=== PATIENT | male | born 1950 | race Caucasian/White ===

== ENCOUNTER 2021-07-01 07:09 | Emergency (ER) | payer BC ==
[2021-07-01 07:46] LABS: Bilirubin Neg (Negative); Blood, Urine Negative (Negative); Glucose, Urine (Dipstick) Normal (Negative); Ketone, Urine 15 mg/dL (Negative); Leukocyte 100 (Negative); Nitrite Negative (Negative); Protein, Urine (Dipstick) Negative (Neg-Trace); Specific Gravity, Urine 1.015 (1.002-1.036); Urobilinogen Normal mg/dL (Less than 2)
[2021-07-01 07:47] LABS: Clarity Very Cloudy (Clear)
[2021-07-01 07:56] LABS: RBC/HPF 0-3 HPF (0-3)
[2021-07-01 07:57] LABS: Bacteria/HPF 4+ HPF (None Seen); Squamous Epithelial 0-3 HPF (0-3)
[2021-07-01] MEDS ORDERED: Ciprofloxacin 500 MG TAB PO SCH (09:00)
== END 2021-07-01 08:55 | disposition home or self-care (01) ==
LOC: CSHERS 07:09
DX: N30.00 Acute cystitis without hematuria (principal); R33.9 Retention of urine, unspecified; R10.817 Generalized abdominal tenderness; E78.5 Hyperlipidemia, unspecified; I10 Essential (primary) hypertension; Z79.899 Other long term (current) drug therapy
CPT/HCPCS: 51702; 81003; 81015; 87086

== ENCOUNTER 2023-02-28 13:44 | Emergency (ER) | payer BC ==
[2023-02-28 14:28] LABS: #Basophils 0.1 10x3/uL (0.0-0.2); #Eosinphils 0.2 10x3/uL (0.0-0.5); #Monocytes 0.6 10x3/uL (0.0-1.1); #Neutrophils 5.4 10x3/uL (1.5-8.4); %Basophils 0.7 % (0.0-2.0); %Eosinophils 2.6 % (0.0-6.0); %Lymphocytes 16.4 % (18.0-47.0); %Monocytes 8.4 % (0.0-10.0); %Neutrophils 71.5 % (40.0-75.0); Hemoglobin 15.1 g/dL (13.5-17.5); Mean Corpuscular Hemoglobin 29.9 pg (27.0-33.0); Mean Corpuscular Volume 87.9 fl (81.2-95.1); Platelet Count 207 10x3/uL (150-450); RBC Distribution Width 11.8 % (11.5-14.5); Red Blood Cell (RBC) Count 5.05 10x6/uL (4.32-5.72); White Blood Cell (WBC) Count 7.6 10x3/uL (3.5-10.5)
[2023-02-28 14:40] LABS: ALT (SGPT) 19 U/L (8-55); AST (SGOT) 17 U/L (5-34); Albumin 4.5 g/dL (3.4-4.8); Alkaline Phosphatase 71 U/L (40-110); Anion Gap 16 mmol/L (10-20); BUN (Urea Nitrogen) 18 mg/dL (8.4-25.7); Bilirubin, Total 0.5 mg/dL (0.2-1.2); Calc. Creatinine Clearance 0 mL/min (70-130); Calcium 9.3 mg/dL (7.8-10.44); Carbon Dioxide 21 mmol/L (23-31); Chloride 109 mmol/L (98-107); Estimated GFR 72; Globulin 2.3 g/dL (2.4-3.5); Glucose 115 mg/dL (83-110); Protein, Total 6.8 g/dL (5.8-8.1); Sodium 142 mmol/L (136-145)
[2023-02-28] MEDS ORDERED: Iopamidol 370 76% 100 ML VIAL ONE (15:22)
== END 2023-02-28 16:35 | disposition home or self-care (01) ==
LOC: CSHERS 13:44
DX: R42 Dizziness and giddiness (principal); I10 Essential (primary) hypertension; E78.5 Hyperlipidemia, unspecified; Z79.899 Other long term (current) drug therapy; Z79.82 Long term (current) use of aspirin
CPT/HCPCS: 70496; 70498; 80053; 84484; 85025; 93005; Q9967